=== PATIENT | female | born 1975 ===

== ENCOUNTER 2021-01-07 12:45 | Inpatient (IN) | payer OTHER ==
[~2021-01-07] VITALS: Ht 157.5 cm; Wt 68.0 kg
[2021-01-08] MEDS ORDERED: METRONIDAZOLE45 G1 (15:52)
[2021-01-08] MEDS ORDERED: CLINDAMYCIN PHO30 M1 (15:52)
[2021-01-08] MEDS ORDERED: LORATADINE10 MG (15:52)
[2021-01-08] MEDS ORDERED: CLOBETASOL PROP50 ML (15:52)
== END 2021-01-11 12:17 | disposition home or self-care (01) | DRG 743 ==
LOC: OB/GYN 01-08 08:40 → O/R 01-08 08:40 → SURH 01-08 12:45 → OB/GYN 01-09 16:30
PROVIDERS: ADMIT Specialist; ATTEND Specialist
PROC: 0UB60ZZ Excision of Left Fallopian Tube, Open Approach (ICD-10-PCS; 2021-01-08)
PROC: 0DNW0ZZ Release Peritoneum, Open Approach (ICD-10-PCS; 2021-01-08)
PROC: 0DNN0ZZ Release Sigmoid Colon, Open Approach (ICD-10-PCS; 2021-01-08)
PROC: 0TN70ZZ Release Left Ureter, Open Approach (ICD-10-PCS; 2021-01-08)
PROC: 0TN60ZZ Release Right Ureter, Open Approach (ICD-10-PCS; 2021-01-08)
PROC: 0UT90ZZ Resection of Uterus, Open Approach (ICD-10-PCS; principal; 2021-01-08 14:15)
DX: D25.1 Intramural leiomyoma of uterus (principal); D25.2 Subserosal leiomyoma of uterus; N80.0 Endometriosis of uterus; N73.6 Female pelvic peritoneal adhesions (postinfective); N99.4 Postprocedural pelvic peritoneal adhesions; N72 Inflammatory disease of cervix uteri; N92.1 Excessive and frequent menstruation with irregular cycle